=== PATIENT | female | born 1975 | race Caucasian/White ===

== ENCOUNTER 2016-11-17 16:00 | Emergency (ER) | payer OTHER ==
[~2016-11-17] VITALS: Wt 71.0 kg
[~2016-11-17 16:00] MED LIST: ALBU8.5H5 IH; MOME13HF IH
[2016-11-17 17:05] LABS: ADD SCAN DIFF NO
[2016-11-17 17:09] LABS: BASOPHILS % 0.5 % (0.0-2.0); EOSINOPHILS # 0.1 10^3/ul (0.0-0.5); EOSINOPHILS % 0.6 % (0.0-7.0); HEMOGLOBIN 13.6 g/dl (12.0-16.0); LYMPHOCYTES % 25.1 % (15.0-51.0); MEAN CORPUSCULAR HEMOGLOBIN 27.6 pg (29.0-33.0); MEAN CORPUSCULAR HGB CONC 33.2 g/dl (32.0-37.0); MEAN CORPUSCULAR VOLUME 83.2 fl (82.0-101.0); MEAN PLATELET VOLUME 9.6 fl (7.4-10.4); MONOCYTE # 0.5 10^3/ul (0.3-0.9); MONOCYTES % 5.9 % (0.0-11.0); NEUTROPHIL # 5.4 10^3/ul (1.6-7.5); NEUTROPHILS % 67.6 % (39.0-77.0); PLATELET COUNT 297 10^3/UL (140-415); RED BLOOD COUNT 4.93 10^6/ul (4.20-5.40); RED CELL DISTRIBUTION WIDTH 12.7 % (11.5-14.5)
[2016-11-17 17:15] LABS: ADD UMIC YES; URINE BILIRUBIN (Dip) NEGATIVE (NEGATIVE); URINE BLOOD (Dip) NEGATIVE (NEGATIVE); URINE COLOR LT. YELLOW (YELLOW); URINE GLUCOSE (Dip) NEGATIVE (NEGATIVE); URINE KETONES (Dip) NEGATIVE (NEGATIVE); URINE LEUKOCYTE ESTERASE (Dip) TRACE (NEGATIVE); URINE NITRITE (Dip) NEGATIVE (NEGATIVE); URINE TOTAL PROTEIN (Dip) NEGATIVE (NEGATIVE); URINE UROBILINOGEN (Dip) 0.2 E.U./dL (0.1-1.0)
[2016-11-17 17:21] LABS: INR 0.91; PROTIME 12.3 Sec (12.2-14.2)
[2016-11-17 17:22] LABS: PARTIAL THROMBOPLASTIN TIME 28.3 Sec (25.0-35.0)
[2016-11-17 17:25] LABS: ALBUMIN 4.5 g/dl (3.3-4.9)
[2016-11-17 17:26] LABS: POTASSIUM 3.7 mmol/L (3.5-5.1)
[2016-11-17 17:28] LABS: ALBUMIN/GLOBULIN RATIO 1.32; BILIRUBIN,INDIRECT 0.4 mg/dl (0-1.1); BILIRUBIN,TOTAL 0.4 mg/dl (0.2-1.3); CREATININE 0.52 mg/dl (0.44-1.00); TOTAL PROTEIN 7.9 g/dl (6.1-8.1)
[2016-11-17 17:29] LABS: CALCIUM 9.6 mg/dl (8.4-10.2)
[2016-11-17 17:52] LABS: BACTERIA,URINE MODERATE; MUCUS,URINE MODERATE; SQUAMOUS EPITHELIAL CELL,UR MANY
[2016-11-17 17:53] LABS: URINE RBCS NONE SEEN /HPF (0)
--- NOTE | 2016-11-17 18:26 | ERD ---
ER Documentation Chief Complaint Date/Time DATE: 11/17/16 TIME: 18:25 Chief Complaint BRUISES AND INCREASED FATIGUE X 1 WEEK HPI This 41-year-old female presents with a one-week history of feeling fatigued. She has also noticed some bruising on her upper extremities and right thigh which she says did occur after playing with her dog but there was no significant trauma. She is concerned was referred by her primary doctor for further evaluation as he is out of the office. She denies any fevers, vomiting , chest pain, shortness of breath, nosebleeds, bleeding or from the bowel or bladder any additional sites. ROS All systems reviewed and are negative except as per history of present illness. Medications Home Meds Reported Medications Albuterol Sulfate* (Albuterol Sulfate* HFA) 8.5 Gm Hfa.aer.ad, 2 PUFF IH BID Y for WHEEZING AND SOB, EA 06/29/14 Mometasone-Formoterol (Dulera) 200-5 Mcg/Inh - 13 Gm Hfa.aer.ad, 2 PUFFS IH BID , EA 06/29/14 Allergies Allergies: Coded Allergies: No Known Allergy (Unverified , 06/29/14) PMhx/Soc History of Surgery: Yes (appy, right ovary and bilateral tubes) Anesthesia Reaction: No Hx Neurological Disorder: No Hx Respiratory Disorders: No Hx Cardiac Disorders: Yes (hyperlipidemia) Hx Psychiatric Problems: No Hx Miscellaneous Medical Probl: No Hx Alcohol Use: Yes Hx Substance Use: No Hx Tobacco Use: No Physical Exam Vitals Vital Signs Date Time Temp Pulse Resp B/P Pulse Ox O2 Delivery O2 Flow Rate FiO2 11/17/16 16:02 98.1 71 18 147/70 99 Physical Exam Const: [] Alert, [id number]. Head: Atraumatic Eyes: Normal Conjunctiva ENT: Normal External Ears, Nose and Mouth. Neck: Full range of motion..~ No meningismus. Resp: Clear to auscultation bilaterally Cardio: Regular rate and rhythm, no murmurs Abd: Soft, non tender, non distended. Normal bowel sounds Skin: No petechiae or rashes. There is some small bruises without significant ecchymosis or purpura or petechia on the bilateral forearms. There is approximately 3 cm bruise on the right thigh without hematoma, warmth, erythema. Back: No midline or flank tenderness Ext: No cyanosis, or edema Neur: Awake and alert Psych: Normal Mood and Affect Result Diagram: 11/17/16 1647 11/17/16 1647 Results 24 hrs Laboratory Tests Test 11/17/16 16:47 White Blood Count 8.010^3/ul Red Blood Count 4.9310^6/ul Hemoglobin 13.6g/dl Hematocrit 41.0% Mean Corpuscular Volume 83.2fl Mean Corpuscular Hemoglobin 27.6pg Mean Corpuscular Hemoglobin Concent 33.2g/dl Red Cell Distribution Width 12.7% Platelet Count 95588^3/UL Mean Platelet Volume 9.6fl Neutrophils % 67.6% Lymphocytes % 25.1% Monocytes % 5.9% Eosinophils % 0.6% Basophils % 0.5% Nucleated Red Blood Cells % 0.0/100WBC Neutrophils # 5.410^3/ul Lymphocytes # 2.010^3/ul Monocytes # 0.510^3/ul Eosinophils # 0.110^3/ul Basophils # 0.010^3/ul Nucleated Red Blood Cells # 0.010^3/ul Prothrombin Time 12.3Sec Prothrombin Time Ratio 1.0 INR International Normalized Ratio 0.91 Activated Partial Thromboplast Time 28.3Sec Urine Color LT. YELLOW Urine Clarity CLOUDY Urine pH 6.0 Urine Specific [place] 1.020 Urine Ketones NEGATIVE Urine Nitrite NEGATIVE Urine Bilirubin NEGATIVE Urine Urobilinogen 0.2 E.U./dL Urine Leukocyte Esterase TRACE Urine Microscopic RBC NONE SEEN/HPF Urine Microscopic WBC 2-5/HPF Urine Squamous Epithelial Cells MANY Urine Bacteria MODERATE Urine Mucus MODERATE Urine Hemoglobin NEGATIVE Urine Glucose NEGATIVE% Urine Total Protein NEGATIVE Sodium Level 141mmol/L Potassium Level 3.7mmol/L Chloride Level 99mmol/L Carbon Dioxide Level 29mmol/L Anion Gap 17 Blood Urea Nitrogen 9mg/dl Creatinine 0.52mg/dl Glucose Level 91mg/dl Calcium Level 9.6mg/dl Total Bilirubin 0.4mg/dl Direct Bilirubin 0.00mg/dl Indirect Bilirubin 0.4mg/dl Aspartate Amino Transf (AST/SGOT) 49IU/L Alanine Aminotransferase (ALT/SGPT) 79IU/L Alkaline Phosphatase 75IU/L Total Protein 7.9g/dl Albumin 4.5g/dl Globulin 3.40g/dl Albumin/Globulin Ratio 1.32 Procedures/MDM Patient presents with bruising without evidence of additional excessive bleeding symptoms. CBC and CMP and PT PTT showed no acute abnormalities. Urine shows trace leukocytes but many squamous epithelial cells. Patient presents with symptoms of uncertain etiology. There is no signs or symptoms of significant blood dyscrasias, hemorrhaging, sepsis, additional emergent conditions to explain the patient's multiple complaints. She will discharged home instructions for further observation, rest, clear fluids and instructions to recheck for new or worsening symptoms with primary care doctor. The patient was stable with no new complaints during the ER course. Clinically, there is no current evidence to suggest meningitis, sepsis, acute abdomen, pneumonia, acute coronary syndrome, pulmonary embolism, or any other emergent condition appearing to require further evaluation or hospitalization. The patient should certainly return for any new or worsening symptoms per the aftercare instructions. They should otherwise follow-up with her primary care doctor for reevaluation this week. Departure Diagnosis: Primary Impression: Bruise of both arms Additional Impression: Multiple complaints Condition: Stable Patient Instructions: Contusion, Soft Tissue Additional Instructions: Examinations normal today. Recommend drink fluids, rest and recheck for new or worsening symptoms with primary care doctor. MICHEAL PATEL MD Nov 17, 2016 18:26
== END 2016-11-17 19:08 | disposition home or self-care (01) ==
LOC: FTE 16:00
DX: S60.221A Contusion of right hand, initial encounter (principal); S60.222A Contusion of left hand, initial encounter; S70.11XA Contusion of right thigh, initial encounter; X58.XXXA Exposure to other specified factors, initial encounter; Y92.9 Unspecified place or not applicable
CPT/HCPCS: 80053; 81001; 81003; 85025; 85610; 85730; 99283

== ENCOUNTER 2018-02-14 19:07 | Emergency (ER) | END 2018-02-14 23:30 | disposition home or self-care (01) ==